=== PATIENT | male | born 1995 | race Caucasian/White ===

== ENCOUNTER 2017-06-11 06:42 | Inpatient (IN) | payer SELFPAY ==
[~2017-06-11] VITALS: Ht 162.6 cm; Wt 54.0 kg
[2017-06-11 07:15] LABS: EOSINOPHIL (%) 0.2 % (0-5); HEMATOCRIT 46.4 % (38.0-50.0); IMMATURE GRANULOCYTE (%) 0.4 % (0.0-0.7); IMMATURE GRANULOCYTE COUNT 0.1 K/uL; INSTRUMENT ABS NEUTROPHIL CT 12.4 K/uL; LYMPHOCYTE COUNT 0.8 K/uL (1.0-2.8); MCH 31.3 PG (29.0-34.0); MCHC 35.1 G/DL (30.0-36.0); MCV 89.2 FL (86-99); MEAN PLAT.VOLUME 10.8 uM^3 (9.0-12.4); MONOCYTE (%) 3.7 % (3-12); MONOCYTE COUNT 0.5 K/uL (0-0.8); NEUTROPHIL (%) 89.4 % (45-76); NEUTROPHIL COUNT 12.4 K/uL (1.8-6.4); PLATELET COUNT 254 K/uL (156-360); RBC DIS.WIDTH-CV 12.1 % (11.8-14.6); RBC DIS.WIDTH-SD 39.7 % (39-53); WHITE BLOOD COUNT 13.8 K/uL (4.1-10.2)
[2017-06-11 07:32] LABS: CHLORIDE 107 mEq/L (99-109); POTASSIUM 3.8 mEq/L (3.7-5.4); SODIUM 139 mEq/L (136-147)
[2017-06-11 07:34] LABS: GLUCOSE 99 mg/dL (70-99)
[2017-06-11 07:35] LABS: ANION GAP 10 MEQ/L (2-14)
[2017-06-11 07:36] LABS: TOTAL BILIRUBIN 0.4 mg/dL (0.0-1.0)
[2017-06-11 07:37] LABS: SERUM ETHYL ALCOHOL < 10 mg/dL
[2017-06-11 07:38] LABS: ALKALINE PHOSPHATASE 85 IU/L (3-129); GFR ESTIMATE (CALCULATED) > 59 mL/min/
[2017-06-11 07:40] LABS: UREA NITROGEN (BUN) 15 mg/dL (9-23)
[2017-06-11 07:41] LABS: SALICYLATE < 5.0 MG/DL (15-30)
[2017-06-11] MEDS ORDERED: WELLBUTRIN XL150 MG PO (09:24)
[2017-06-11] MEDS ORDERED: PROZAC20 MG PO (09:24)
[2017-06-11 10:24] LABS: AMPHETAMINE NEGATIVE (500 ng/mL); BARBITURATES NEGATIVE (200 ng/mL); BENZODIAZEPINES NEGATIVE (150 ng/mL); COCAINE NEGATIVE (150 ng/mL); METHADONE NEGATIVE (200 ng/mL); METHAMPHETAMINE NEGATIVE (500 ng/mL); OPIATES (MORPHINE) NEGATIVE (100 ng/mL); OXYCODONE NEGATIVE (100 ng/mL); PHENCYCLIDINE NEGATIVE (25 ng/mL); THC CANNABINOIDS NEGATIVE (50 ng/mL); TRICYCLIC ANTIDEPRESSANTS NEGATIVE (300 ng/mL)
[2017-06-11 10:25] LABS: INTERNAL CONTROLS VALID? YES; PROPOXYPHENE NEGATIVE (300 ng/mL)
[2017-06-11 17:10] VITALS: BP 133/70
[2017-06-11 17:20] VITALS: BP 133/70
[2017-06-11 20:30] VITALS: BP 126/92
[2017-06-11 23:59] VITALS: BP 126/74
[2017-06-12 04:27] VITALS: BP 98/53
[2017-06-12 08:37] VITALS: BP 139/61
[2017-06-12 16:30] VITALS: BP 124/70
[2017-06-12] MEDS ORDERED: NICOTINE PATCH1 EAC1 TD (17:08)
[2017-06-12] MEDS ORDERED: DIVALPROEX SOD250 M1 PO (17:10)
[2017-06-12] MEDS ORDERED: Thiamine,Vitamin B1 PO (17:10)
[2017-06-12] MEDS ORDERED: ARIPIPRAZOLE10 MG PO (17:10)
[2017-06-12] MEDS ORDERED: FOLIC ACID1 MG PO (17:10)
== END 2017-06-12 18:21 | DRG 918 ==
LOC: EME 06:42 → 3EAST 15:18 → EDOF 15:18 → ENRESERV 15:19 → 3EAST 17:02
PROVIDERS: Emergency Medicine
DX: T45.0X2A Poisoning by antiallergic and antiemetic drugs, intentional self-harm, initial encounter (principal); F31.9 Bipolar disorder, unspecified; F12.90 Cannabis use, unspecified, uncomplicated; F10.20 Alcohol dependence, uncomplicated; D72.829 Elevated white blood cell count, unspecified; R56.9 Unspecified convulsions; F17.200 Nicotine dependence, unspecified, uncomplicated; Z79.899 Other long term (current) drug therapy
CPT/HCPCS: 70450; 80053; 83930; 85025; 90686; 93005; 99281; 99285; G0480; J1630; J1650; J2060; J3486; J7120

== ENCOUNTER 2017-06-12 17:07 | Inpatient (IN) | payer OTHER ==
[~2017-06-12 17:07] MED LIST: PROZAC20 MG PO; WELLBUTRIN XL150 MG PO
[2017-06-12] MEDS ORDERED: NICOTINE PATCH1 EAC1 TD (17:08)
[2017-06-12] MEDS ORDERED: Thiamine,Vitamin B1 PO (17:10)
[2017-06-12] MEDS ORDERED: FOLIC ACID1 MG PO (17:10)
[2017-06-12] MEDS ORDERED: DIVALPROEX SOD250 M1 PO (17:10)
[2017-06-12] MEDS ORDERED: ARIPIPRAZOLE10 MG PO (17:10)
[2017-06-12 18:55] VITALS: BP 130/73
[2017-06-12 19:24] VITALS: BP 130/73
[2017-06-13 06:50] VITALS: BP 110/55
[2017-06-13 15:25] VITALS: BP 134/62
[2017-06-14 07:43] VITALS: BP 120/58
[2017-06-14 14:56] VITALS: BP 137/58
[2017-06-15 07:52] VITALS: BP 111/58
[2017-06-15 15:20] VITALS: BP 126/71
[2017-06-16 07:41] VITALS: BP 114/59
[2017-06-16 15:58] VITALS: BP 169/78
[2017-06-16 19:36] VITALS: BP 130/59
[2017-06-17 07:47] VITALS: BP 100/58
[2017-06-17 15:51] VITALS: BP 129/69
[2017-06-18 07:42] VITALS: BP 105/52
[2017-06-18 16:11] VITALS: BP 130/70
[2017-06-19 07:47] VITALS: BP 102/55
[2017-06-19 15:19] VITALS: BP 127/69
[2017-06-20 07:37] VITALS: BP 92/49
[2017-06-20 15:14] VITALS: BP 134/72
[2017-06-21 07:49] VITALS: BP 109/56
[2017-06-21] MEDS ORDERED: QUETIAPINE FUM100 MG PO (09:01)
[2017-06-21] MEDS ORDERED: DIVALPROEX SOD500 M1 PO (09:01)
== END 2017-06-21 10:55 | DRG 885 ==
LOC: 1WEST 17:07
DX: F31.9 Bipolar disorder, unspecified (principal); F22 Delusional disorders; F12.10 Cannabis abuse, uncomplicated; F19.10 Other psychoactive substance abuse, uncomplicated; F10.20 Alcohol dependence, uncomplicated; F17.200 Nicotine dependence, unspecified, uncomplicated; Z91.5 Personal history of self-harm
CPT/HCPCS: 80164; 97150 GO; J0515